=== PATIENT | female | born 1980 | race Caucasian/White ===

== ENCOUNTER 2016-11-24 19:45 | Emergency (ER) | payer BC ==
[2016-11-24 20:09] VITALS: BP 150/85; PULSE 98; RESP 20; TEMP 98.1; O2SAT 100
--- NOTE | 2016-11-24 20:32 | C.PDOC ---
History Of Present Illness 36 yr old female presents to the ER for evaluation of pain over the back of neck pain, gradually developed since yesterday after waking up. Patient states today she was trying to stretch her neck and the pain got worse. Otherwise, patient states the pain is localized over the back of the neck and worse with head rotation. Patient denies recent trauma, injury, headache, dizziness, vision changes, vertigo, focal deficits, drooling, dysphagia, dyspnea, chest pain, SOB, nausea, vomiting, back pain, denies weakness, sensory or vascular deficits to B/L UEs. Ambulate to ED for evaluation, appears in pain. Time Seen by Provider: 11/24/16 20:10 Chief Complaint (Nursing): Back Pain History Per: Patient History/Exam Limitations: no limitations Onset/Duration Of Symptoms: Gradual (1 day ) Past Medical History Reviewed: Historical Data, Nursing Documentation, Vital Signs Vital Signs: Last Vital Signs Temp 98.1 F 11/24/16 20:05 Pulse 98 H 11/24/16 20:05 Resp 20 11/24/16 20:05 BP 150/85 11/24/16 20:05 Pulse Ox 100 11/24/16 20:34 - [facility] Procedures MONITORING NOS (12/17/13) MANUAL ASSIST DELIV NEC (12/21/13) Family History: States: No Known Family Hx - Social History Hx Alcohol Use: Yes Hx Substance Use: No Review Of Systems Except As Marked, All Systems Reviewed And Found Negative. Eyes: Negative for: Vision Change Cardiovascular: Negative for: Chest Pain Respiratory: Negative for: Shortness of Breath Gastrointestinal: Negative for: Nausea, Vomiting Musculoskeletal: Positive for: Neck Pain (Posterior neck pain, over the back of neck ) Neurological: Negative for: Headache, Dizziness Physical Exam - Physical Exam Appears: Well, Non-toxic, No Acute Distress Skin: Warm, Dry Head: Normacephalic Eye(s): bilateral: PERRL Ear(s): Bilateral: Normal Throat: No Erythema, No Exudate, No Drooling Neck: Decreased ROM (to contralateral side ( left)), No Midline Cervical Tenderness, No Paracervical Tenderness, No Step Off Deformity, Supple, Other ( Right lateral cervical tenderness overlying the trapezius muscle with moderate muscle spasm. No midline tenderness.) Chest: Symmetrical, No Tenderness Cardiovascular: Rhythm Regular, No Murmur Respiratory: No Rales, No Rhonchi, No Stridor, No Wheezing Back: No CVA Tenderness, No Vertebral Tenderness, No Paraspinal Tenderness Extremity: No Deformity, No Swelling Neurological/Psych: Oriented x3, Normal Speech, Normal Motor, Normal Sensation, Normal Reflexes ED Course And Treatment O2 Sat by Pulse Oximetry: 100 Pulse Ox Interpretation: Normal Progress Note: On re-eavluation, pt is afebrile, hemodynamicaly stable. Non- toxic. PulseOx 100% RA. neck: Right sided lateral cervical tenderness with mod muscle spasm. Exam c/w cervical strain, (-) midline tenderness, (-) JVD. ENT: no acute findings. Lungs: CTA B/L, BS equal B/L. Neurologicaly intact. Soft C-collar applied . Pt was offered imaging , refused at this time, no hx of trauma. Pt advised. ref. to f/u with PMD in 1-2 days for re-eavl. return if any new changes. Pt advised Disposition Counseled Patient/Family Regarding: Diagnosis, Need For Followup, Rx Given - Disposition Referrals: Efren Dotson MD [Staff Provider] - Disposition: HOME/ ROUTINE Disposition Time: 20:29 Condition: STABLE Additional Instructions: LIght duty to neck area cervical collar for 1 week take pain medication as need Follow up with PMD in 2-3 days for re-evaluation. Return to ED if any worsening or new changes. Prescriptions: diaZEpam [Valium] 5 mg PO HS #2 tab Ibuprofen [Motrin Tab] 600 mg PO Q6 #10 tab Methocarbamol [Robaxin] 500 mg PO TID #14 tab Instructions: Soft Cervical Collar (ED), Cervical Sprain (ED) Forms: Work Excuse - Clinical Impression Clinical Impression: Cervical strain - PA / DEPUTY K 9 / Resident Statement MD/DO has reviewed & agrees with the documentation as recorded. - Scribe Statement The provider has reviewed the documentation as recorded by the Scribe Andie Taveras All medical record entries made by the Scribe were at my direction and personally dictated by me. I have reviewed the chart and agree that the record accurately reflects my personal performance of the history, physical exam, medical decision making, and the department course for this patient. I have also personally directed, reviewed, and agree with the discharge instructions and disposition.
== END 2016-11-24 20:44 | disposition home or self-care (01) ==
LOC: C.ER 19:45
DX: S16.1XXA Strain of muscle, fascia and tendon at neck level, initial encounter (principal); X58.XXXA Exposure to other specified factors, initial encounter; Y92.009 Unspecified place in unspecified non-institutional (private) residence as the place of occurrence of the external cause

== ENCOUNTER 2018-10-22 14:55 | Emergency (ER) | payer BC ==
[2018-10-22 15:12] VITALS: TEMP 99; O2SAT 100
--- NOTE | 2018-10-22 16:02 | RAD ---
Date of service: 10/22/2018 HISTORY: r/o infiltrate COMPARISON: No prior. TECHNIQUE: 1 view obtained. FINDINGS: LUNGS: No active pulmonary disease. PLEURA: No significant pleural effusion identified, no pneumothorax apparent. CARDIOVASCULAR: No aortic atherosclerotic calcification present. Normal cardiac size. No pulmonary vascular congestion. OSSEOUS STRUCTURES: No significant abnormalities. VISUALIZED UPPER ABDOMEN: Normal. OTHER FINDINGS: Surgical clips projecting over the central mediastinum. IMPRESSION: No active disease.
[2018-10-22 16:04] LABS: BASO # 0.1 K/uL (0.0-0.2); BASO % 0.9 % (0.0-2.0); EOS # 0.1 K/uL (0.0-0.7); HEMOGLOBIN 13.7 g/dL (11.0-16.0); LYMPH # 1.8 K/uL (1.0-4.3); LYMPH % 23.5 % (20.0-40.0); MEAN CELL VOLUME 91.4 fL (81.0-99.0); MEAN PLATELET VOLUME 8.3 fL (7.2-11.7); MONO # 0.5 K/uL (0.0-0.8); MONO % 6.6 % (0.0-10.0); NEUT # 5.3 K/uL (1.8-7.0); RBC 4.29 Mil/uL (3.80-5.20); RED CELL DISTRIBUTION WIDTH 12.2 % (11.5-14.5); WHITE BLOOD COUNT 7.8 K/uL (4.8-10.8)
[2018-10-22 16:28] LABS: ALB/GLOB RATIO 1.4 (1.0-2.1); ALBUMIN 4.1 g/dL (3.5-5.0); ALT/SGPT 8 U/L (9-52); AST/SGOT 15 U/L (14-36); BLOOD UREA NITROGEN 16 mg/dL (7-17); CALCIUM 9.4 mg/dl (8.6-10.4); GFR NON-AFRICAN AMERICAN > 60
[2018-10-22 16:51] VITALS: BP 130/82; PULSE 78; RESP 16
--- NOTE | 2018-10-22 20:24 | C.PDOC ---
History Of Present Illness 38 y/o female presents to ED stating she thinks her blood pressure is high. Patient states she checks her blood pressure at home with an electronic machine 1 or 2 times a day. States that she gets varying blood pressure reads. Denies chest pain. Patient does complain of mild headache, feeling anxious and stressed out. Patient has no other symptoms. Time Seen by Provider: 10/22/18 15:12 Chief Complaint (Nursing): High Blood Pressure History Per: Patient History/Exam Limitations: no limitations Onset/Duration Of Symptoms: Days Current Symptoms Are (Timing): Still Present Past Medical History Reviewed: Historical Data, Nursing Documentation, Vital Signs Vital Signs: Last Vital Signs Temp 99 F 10/22/18 14:59 Pulse 78 10/22/18 16:50 Resp 16 10/22/18 16:50 BP 130/82 10/22/18 16:50 Pulse Ox 100 10/22/18 16:50 - [employer] Procedures MONITORING NOS (12/17/13) MANUAL ASSIST DELIV NEC (12/21/13) Family History: States: No Known Family Hx - Social History Hx Alcohol Use: Yes Hx Substance Use: No - Immunization History Hx Tetanus Toxoid Vaccination: No Hx Influenza Vaccination: No Hx Pneumococcal Vaccination: No Review Of Systems Except As Marked, All Systems Reviewed And Found Negative. Cardiovascular: Negative for: Chest Pain Respiratory: Negative for: Shortness of Breath Neurological: Positive for: Headache Psych: Positive for: Anxiety Physical Exam - Physical Exam Appears: Non-toxic, No Acute Distress Skin: Warm, Dry Head: Atraumatic Eye(s): bilateral: Normal Inspection Oral Mucosa: Moist Neck: Supple Cardiovascular: Rhythm Regular, No Murmur Respiratory: Normal Breath Sounds, No Rales, No Rhonchi, No Wheezing Gastrointestinal/Abdominal: Soft, No Tenderness Extremity: Bilateral: Atraumatic, Normal ROM Neurological/Psych: Oriented x3, Normal Speech ED Course And Treatment - Laboratory Results Result Diagrams: 10/22/18 15:54 10/22/18 15:54 Lab Results: Troponin I < 0.0120 ng/mL (0.00-0.120) 10/22/18 15:54 Total Bilirubin 0.4 mg/dL (0.2-1.3) 10/22/18 15:54 AST 15 U/L (14-36) 10/22/18 15:54 ALT 8 U/L (9-52) L 10/22/18 15:54 Alkaline Phosphatase 46 U/L (38-126) 10/22/18 15:54 Total Protein 7.1 g/dL (6.3-8.3) 10/22/18 15:54 Albumin 4.1 g/dL (3.5-5.0) 10/22/18 15:54 Globulin 3.0 gm/dL (2.2-3.9) 10/22/18 15:54 Albumin/Globulin Ratio 1.4 (1.0-2.1) 10/22/18 15:54 ECG: Interpreted By Me, Viewed By Me ECG Rhythm: Sinus Rhythm Interpretation Of ECG: Normal axis. Normal intervals. Rate From EC O2 Sat by Pulse Oximetry: 100 (RA) Pulse Ox Interpretation: Normal - Other Rad CXR X-Ray: Read By Radiologist Interpretation: FINDINGS: LUNGS: No active pulmonary disease. PLEURA: No significant pleural effusion identified, no pneumothorax apparent. CARDIOVASCULAR: No aortic atherosclerotic calcification present. Normal cardiac size. No pulmonary vascular congestion. OSSEOUS STRUCTURES: No significant abnormalities. VISUALIZED UPPER ABDOMEN: Normal. OTHER FINDINGS: Surgical clips projecting over the central mediastinum. IMPRESSION: No active disease. Medical Decision Making Medical Decision Making: Plan: --EKG --Labs --Chest XR Disposition - Disposition Referrals: Horace Schwartz, [Non-Staff] - Disposition: HOME/ ROUTINE Disposition Time: 16:30 Condition: GOOD Additional Instructions: MARIALUISA HESTER, thank you for letting us take care of you today. The emergency medical care you received today was directed at your acute symptoms. If you were prescribed any medication, please fill it and take as directed. It may take several days for your symptoms to resolve. Return to the Emergency Department if your symptoms worsen, do not improve, or if you have any other problems. Please contact your doctor or call one of the physicians/clinics you have been referred to that are listed on the Patient Visit Information form that is included in your discharge packet. Bring any paperwork you were given at discharge with you along with any medications you are taking to your follow up visit. Our treatment cannot replace ongoing medical care by a primary care provider outside of the emergency department. Thank you for allowing the [facility] team to be part of your care today. Please follow up with your primary care doctor this week for a blood pressure check and further management. Instructions: Controlling Your Blood Pressure Through Lifestyle, Prehypertension Forms: [facility] (Togolese) - Clinical Impression Clinical Impression: Hypertension - Scribe Statement The provider has reviewed the documentation as recorded by the Alberto Davalos Provider Attestation: All medical record entries made by the Alberto were at my direction and personally dictated by me. I have reviewed the chart and agree that the record accurately reflects my personal performance of the history, physical exam, medical decision making, and the department course for this patient. I have also personally directed, reviewed, and agree with the discharge instructions and disposition.
--- NOTE | 2018-10-23 15:01 | CARD ---
APPROVED REPORT Date of service: 10/22/2018 EKG Measurement Heart [id number] <Conclusion> Normal sinus rhythm Possible Left atrial enlargement Borderline ECG
== END 2018-10-22 16:51 | disposition home or self-care (01) ==
LOC: C.ER 14:55
DX: I10 Essential (primary) hypertension (principal)